=== PATIENT | female | born 2005 | race Caucasian/White ===

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

== ENCOUNTER 2024-08-18 18:10 | Emergency (ER) | payer BC | END 2024-08-18 19:51 | disposition left against medical advice (07) | LOC: ED 18:10 | DX: Z00.01 Encounter for general adult medical examination with abnormal findings (principal); Z53.21 Procedure and treatment not carried out due to patient leaving prior to being seen by health care provider ==